=== PATIENT | male | born 1995 | race Caucasian/White ===

== ENCOUNTER 2017-01-07 14:55 | Emergency (ER) | payer SELFPAY ==
[~2017-01-07] VITALS: Ht 180.3 cm; Wt 82.0 kg
[2017-01-07 15:48] VITALS: BP 114/69
== END 2017-01-07 23:00 | disposition left against medical advice (07) ==
LOC: ER 22:43
DX: M79.604 Pain in right leg (principal); Z53.21 Procedure and treatment not carried out due to patient leaving prior to being seen by health care provider